=== PATIENT | female | born 1970 | race Caucasian/White ===

== ENCOUNTER 2016-12-17 14:04 | Emergency (ER) | payer MEDICAID ==
--- NOTE | 2016-12-17 14:37 | ED Physician Chart ---
ED Chief Complaint/HPI - Patient Information Date Seen:: 12/17/16 Time Seen:: 14:31 Chief Complaint:: VAGINAL BLEEDING History of Present Illness:: THIS IS A 46 YO FEMALE WHO STATES THAT SHE IS [age] WEEKS AND STARTED TO BLEED SEVERAL DAYS AGO. SHE ALSO THINKS THAT SHE HAS LOSS THE DURING HER BLEEDING AT HOME. SHE IS = 4 PARA =1 AB = 2. SHE STATES THAT SHE HAS FIBROIDS AND OVARIAN CYST. Allergies:: Allergies Allergy/AdvReac Type Severity Reaction Status Date / Time No Known Allergies Allergy Verified 12/17/16 14:16 Vitals:: Vital Signs - 8 hr 12/17/16 14:16 Temp 98.5 F HR 85 RR 16 BP 108/74 O2 Sat % 99 Historian:: Patient Review:: Nurse's Note Reviewed ED Review of Systems - Review of Systems General/Constitutional: No fever, No chills, No weight loss, No weakness, No diaphoresis, No edema, No loss of appetite Skin: No skin lesions, No rash, No bruising Head: No headache, No light-headedness Eyes: No loss of vision, No pain, No diplopia ENT: No earache, No nasal drainage, No sore throat, No tinnitus Neck: No neck pain, No swelling, No thyromegaly, No stiffness, No mass noted Cardio Vascular: No chest pain, No palpitations, No PND, No orthopnea, No edema Pulmonary: No SOB, No cough, No sputum, No wheezing GI: No nausea, No vomiting, No diarrhea, No pain, No melena, No hematochezia, No constipation, No hematemesis G/U: No dysuria, No frequency, No hematuria Seed Cutter: Abnormal vaginal bleeding Musculoskeletal: No bone or joint pain, No back pain, No muscle pain Endocrine: No polyuria, No polydipsia Psychiatric: No prior psych history, No depression, No anxiety, No suicidal ideation Hematopoietic: No bruising, No lymphadenopathy Allergic/Immuno: No urticaria, No angioedema Neurological: No syncope, No focal symptoms, No weakness, No paresthesia, No headache, No seizure, No dizziness, No confusion, No vertigo ED Past Medical History - Past Medical History Obtainable: Yes Past Medical History: No significant medical hx Family History: None Social History: Non Smoker, No Alcohol, No Drug Use Surgical History: Psychiatricy History: None Medication: Reviewed Family Medical History - Family Member Father Age: 73 Ethnicity: Living Status: Still Living Hx Family Hypertension: Yes Hx Family Diabetes: Yes ED Physical Exam - Physical Examination General/Constitutional: Awake, Well-developed, well-nourished, Alert, No distress, GCS 15, Non-toxic appearing, Ambulatory Head: Atraumatic Eyes: Lids, conjuctiva normal, PERRL, EOMI Skin: Nl inspection, No rash, No skin lesions, No ecchymosis, Well hydrated, No lymphadenopathy ENMT: External ears, nose nl, Nasal exam nl, Lips, teeth, gums nl Neck: Nontender, Full ROM w/o pain, No JVD, No nuchal rigidity, No bruit, No mass, No stridor Respiratory: Nl effort/Exclusion, Clear to Auscultation, No Wheeze/Rhonchi/Rales Cardio Vascular: RRR, No murmur, gallop, rubs, NL S1 S2 GI: No tenderness/rebounding/guarding, No organomegaly, No hernia, Normal BS's, Nondistended, No mass/bruits, No McBurney tenderness : No CVA tenderness Extremities: No tenderness or effusion, Full ROM, normal strength in all extremities, No edema, Normal digits & nails Neuro/Psych: Alert/oriented, DTR's symmetric, Normal sensory exam, Normal motor strength, Judgement/insight normal, Mood normal, Normal gait, No focal deficits Misc: normal gait, Normal back, No paraspinal tenderness ED Labs/Radiology/EKG Results - Radiology Results Results: PELVIC ULTRASOUND = NO IUP WITH SMALL AMT OF RETAINED PRODUCTS. ED Assessment - Assessment General Assessment: COMPLETE ED Septic Shock - . Is Septic Shock (SBP<90, OR Lactate>4 mmol\L) present?: No - <6hrs of presentation: Vital Signs: Vital Signs - 8 hr 12/17/16 14:16 Temp 98.5 F HR 85 RR 16 BP 108/74 O2 Sat % 99 ED Reassessment (Disposition) - Reassessment Reassessment Condition:: Improved - Diagnosis Diagnosis:: COMPLETE VAGINAL BLEEDING - Aftercare/Follow up Instructions Aftercare/Follow-Up Instructions:: Counseled pt regarding lab results/diagnosis & need follow up, Refer to Discharge Instructions, Counseled pt & family regarding lab results/diagnosis & need follow up - Patient Disposition Discharge/Transfer:: Home Condition at Disposition:: Improved ED Discharge Plan - Patient Disposition Admit/Discharge/Transfer: PT DISCHARGED HOME Condition at Disposition: Stable Instructions: Miscarriage, [id number] Additional Instructions: TOLERATED. Forms: Work Release Form
[2016-12-17 15:59] LABS: URINE BILIRUBIN NEGATIVE (NEGATIVE); URINE BLOOD LARGE (NEGATIVE); URINE GLUCOSE (UA) NEGATIVE (NEGATIVE); URINE KETONE NEGATIVE (NEGATIVE); URINE PH 5.5 (4.6 - 8.0); URINE PROTEIN TRACE mg/dL (NEGATIVE); URINE UROBILINOGEN 0.2 E.U./dL (0.2 - 1.0)
[2016-12-17 16:11] LABS: URINE BACTERIA OCCASIONAL /hpf (NONE SEEN); URINE COLOR YELLOW; URINE EPITHELIAL CELLS FEW /lpf (FEW); URINE RBC >100 /hpf (0-5); URINE WBC 0-2 /hpf (0-5)
--- NOTE | 2016-12-18 08:08 | Diagnostic Imaging Report ---
Ultrasound OB less than 14 weeks HISTORY: female with vaginal bleeding. Per patient, patient has history of recent pelvic ultrasound at outside institution which mentioned IUP at estimated 9 weeks. COMPARISON: None available at this institution. Technique: Longitudinal and transverse sonographic sector images of the pelvis were obtained transabdominally. Note patient refused transvaginal images. Findings: The uterus measures 11.6 x 4.6 x 5.8 cm and demonstrates a heterogeneous echotexture. The Endometrium measures 1.2 cm. There is a heterogeneous area along the anterior aspect of the upper body of the uterus measuring 3.8 x 3.4 cm possibly representing a fibroid. No definite intrauterine gestation is identified. No evidence of free fluid in the pelvis. The right ovary measures 2.3 x 1.8 cm. The left ovary measures 2.9 x 1.9 cm. IMPRESSION: No intrauterine gestation identified. Differential diagnosis includes a very early or possible recent miscarriage. Note that at this time, an ectopic cannot be excluded. Clinical correlation and follow-up is recommended. Heterogeneous area seen along the anterior upper body of the uterus measuring 3.8 x 2.4 cm. This may represent a fibroid. Transvaginal images with further clarify. No evidence of free fluid in the pelvis. Given the above findings and patient's provided history on recent ultrasound, correlation with serial beta hCGs and short-term repeat ultrasound is recommended for further assessment/monitoring. In the presence of a positive test, ectopic gestation should be excluded.
--- NOTE | 2016-12-19 17:15 | Pathology Report ---
[id number] Collection Date: 12/17/2016 Surgeon: Dr. Radha Centeno Specimen Description: Possible POC Gross Description: Received in a small plastic bag are two portions of spongy, sosa-red, hemorrhagic soft tissue measuring 4.0 x 1.5 x 0.3 cm and 4.5 x 1.7 x 0.4 cm. Sectioning shows spongy soft tissue with no gross evidence for parts. Totally submitted in four cassettes labeled A1 to A4. Microscopic Description: The histologic sections show decidualized secretory endometrium admixed with blood clot. There is no evidence for tissue, and no definite chorionic villi are identified. Diagnosis: No definite chorionic villi or tissue identified (nondiagnostic for products of conception). Comment: Clinical correlation and follow-up is recommended. [facility]# [id number]
== END 2016-12-17 16:40 | disposition home or self-care (01) ==
LOC: ER 14:04
DX: O03.9 Complete or unspecified spontaneous abortion without complication (principal); O46.91 Antepartum hemorrhage, unspecified, first trimester; Z3A.01 Less than 8 weeks gestation of pregnancy
CPT/HCPCS: 76801-TC; 81001-TC; 81025-TC; 88304-TC